=== PATIENT | female | born 1985 | race Caucasian/White ===

== ENCOUNTER 2016-12-28 08:27 | Outpatient (CLI) | payer BC ==
--- NOTE | 2016-12-28 09:15 | ULT ---
PELVIC SONOGRAM TRANSABDOMINAL AND TRANSVAGINAL IMAGING WITH DUPLEX EVALUATION: HISTORY: Amenorrhea. FINDINGS: Urinary bladder is unremarkable. The uterus has a homogeneous echotexture and is 13.2 cm in length. Within the endometrial cavity, a well-circumscribed collection of fluid is 1.2 cm in length. This correlates with an 8 weeks 3 day gestational sac size. No yolk sac or pole are apparent. No free fluid is seen within the pelvis. The right ovary is 2.2 cm in length and the left 2.7 cm. Each has a normal appearance and demonstrates good color and spectral Doppler flow. IMPRESSION: Cystic structure within the endometrial cavity. No yolk sac or pole are apparent. Blighted o vum is the favored diagnosis. POS: [facility]
== END 2016-12-28 08:28 | disposition home or self-care (01) ==
LOC: ULT 08:27
PROVIDERS: ATTEND Family Medicine
DX: N91.2 Amenorrhea, unspecified (principal)
CPT/HCPCS: 76856

== ENCOUNTER 2018-02-08 14:24 | Outpatient (CLI) | payer BC ==
--- NOTE | 2018-02-08 17:19 | ULT ---
OB ULTRASOUND: 02/08/18 HISTORY: Size, dates and anatomy. FINDINGS: Single viable intrauterine is noted. Gestational age by ultrasound is 19 weeks, 2 days. BPD: 19 week, 4 day HC: 19 week, 1 day Cerebellum: 19 week, 2 day AC: 19 week, 3 day FL: 18 week, 6 day heart rate 149 beats per minute. Placenta: Posterior and low lying. Presentation: Vertex. Amniotic fluid volume: Within normal range. ANATOMY: Intracranial contents show lateral ventricles upper normal size. Followup recommended. Intracranial c ontents otherwise unremarkable. Four chamber heart, stomach, kidneys, cord insertion, bladder, spine, facial features, extremities an d three vessel cord were all imaged. Cervical length: 4.9 cm. IMPRESSION: 1. 19 week, 2 day gestation by ultrasound measurement. 2. Lateral ventricles upper normal. Recommend followup OB ultrasound to re-evaluate. 3. Posterior low lying placenta. 4. Technologist described uterine contractions during the exam. POS: [facility]
== END 2018-02-08 14:25 | disposition home or self-care (01) ==
LOC: BICULT 14:24
PROVIDERS: ATTEND Family Medicine
DX: Z34.82 Encounter for supervision of other normal pregnancy, second trimester (principal)
CPT/HCPCS: 76805

== ENCOUNTER 2018-03-27 09:14 | Outpatient (CLI) | payer BC ==
--- NOTE | 2018-03-27 11:01 | ULT ---
OB ULTRASOUND: 03/27/2018 HISTORY: Low lying placenta. Follow-up evaluation. COMPARISON: 02/08/2018 FINDINGS: Again noted is a single intrauterine gestation, in cephalic presentation. Cardiac Doppler demonstrat es heart tones with a heart rate of 147 beats per minute. The placenta is located scalper operator iorly, without evidence of placenta previa. The placenta was noted to be low lying on the prior exam . There is a normal amount of amniotic fluid with an amniotic fluid index of 14.54 cm. Cervical length measures 6.9 cm. MEASUREMENTS: BIPARIETAL DIAMETER: 6.37 cm (25 weeks 6 days). HEAD CIRCUMFERENCE: 24.91 cm (27 weeks 1 day). ABDOMINAL CIRCUMFERENCE: 20.38 cm (25 weeks). FEMUR LENGTH: 4.67 cm (25 weeks 4 days). The estimated gestational age by ultrasound is 26 weeks with an PRESLEY of 07/03/2018. Gestational age b y last menstrual period is also 26 weeks. Estimated weight by ultrasound is 808 g (1 lb 13 oz). The anatomical structures were not evaluated on this exam, but no definite anomalies were seen on the provided images. IMPRESSION: 1. Single intrauterine gestation, in cephalic presentation, with heart tones documented. 2. Estimated gestational age by ultrasound is 26 weeks with estimated date of delivery of 07/03/2018 . 3. Estimated weight is 808 g (1 lb 13 oz). This represents the 18th percentile for weig ht. 4. The placenta is located posteriorly, and there are no findings to suggest placenta previa on this examination. The placenta also does not appear to be low lying, which was seen on the prior examina tion. POS: [facility]
== END 2018-03-27 09:15 | disposition home or self-care (01) ==
LOC: BICULT 09:14
PROVIDERS: ATTEND Family Medicine
DX: O44.42 Low lying placenta NOS or without hemorrhage, second trimester (principal); Z3A.26 26 weeks gestation of pregnancy
CPT/HCPCS: 76805

== ENCOUNTER 2018-05-01 07:35 | Outpatient (CLI) | payer BC ==
--- NOTE | 2018-05-01 09:14 | ULT ---
ULTRASOUND OBSTETRICAL LIMITED: DATE: 05-01-18 HISTORY: 33-year-old female in 3rd trimester of . Follow up ventriculomegaly. FINDINGS: number: Sargent lie: Cephalic Maternal cervix: Obscured Placenta: Posterior. No placenta previa. Amniotic fluid volume: BRENDAN 13 cm heart rate: 132 bpm anatomy was not evaluated in detail, except for the lateral ventricles, which do not appear dil ated on the current study. biometry: Head circumference (HC): 29.7 cm 32 w 6 d Biparietal diameter (BPD): 7.8 cm 31 w 2 d Abdominal circumference (AC): 27.4 cm 31 w 4 d Femur length (FL): 6.0 cm 31 w 3 d Average ultrasound age (AUA): 31 w 6 d Estimated date of delivery (PRESLEY): 06-27-2018 Last menstrual period (LMP): 09-26-2017 Gestational age by LMP: 31 w 0 d Estimated weight (EFW): 1788 g +/- 261 g (3 lbs. 15 oz +/- 9 oz) IMPRESSION: 1. Live 3rd trimester intrauterine gestation. 2. Estimated gestational age of 31 weeks, 6 days. 3. Cephalic lie. 4. No ventriculomegaly visualized. PJ Beaulieu POS: [facility]
== END 2018-05-01 07:36 | disposition home or self-care (01) ==
LOC: BICULT 07:35
PROVIDERS: ATTEND Family Medicine
DX: O35.0XX0 Maternal care for (suspected) central nervous system malformation in fetus, not applicable or unspecified (principal)
CPT/HCPCS: 76816

== ENCOUNTER 2018-06-27 11:56 | Inpatient (IN) | payer BC ==
[2018-06-27 12:38] VITALS: BMI 33.5
[2018-06-27] MEDS ORDERED: NS / Oxytocin 40 units/1000ml 1,000 ML ONE (12:55)
[2018-06-27] MEDS ORDERED: Fentanyl 4 mcg/Bup 0.1% Cadd 0 ML ONE (12:55)
[2018-06-27] MEDS ORDERED: Lidocaine 1% (PF) 30 ML VIAL ONE (12:56)
[2018-06-27] MEDS ORDERED: Lidocaine 1.5%/Epinephrine 1:200,000 5 ML AMPUL IJ ONE (12:56)
[2018-06-27] MEDS ORDERED: Ondansetron PF 4 MG/2 ML Vial IVP PRN ×2 (13:00→14:37)
[2018-06-27] MEDS ORDERED: Communication Order-Pharmacy FS SCH (13:00)
[2018-06-27] MEDS ORDERED: Naloxone HCl 0.4 mg/ml Vial IVP PRN ×2 (13:00→13:02)
[2018-06-27] MEDS ORDERED: ePHEDrine/0.9% NaCl/PF SYRINGE 50 mg/10 ml SLOW IVP PRN (13:00)
[2018-06-27] MEDS ORDERED: Acetaminophen 325 MG TAB PO PRN (13:02)
[2018-06-27] MEDS ORDERED: Eucerin (Mineral Oil/Petrolatum,White) 30 gm Jar TOP PRN (13:02)
[2018-06-27] MEDS ORDERED: Promethazine HCl 25 MG/ML VIAL IM PRN (13:02)
[2018-06-27] MEDS ORDERED: diphenhydrAMINE 50 MG/ML VIAL IVP PRN (13:02)
[2018-06-27] MEDS ORDERED: Lactated Ringer's 500 ML IV PRN (13:02)
[2018-06-27] MEDS ORDERED: Fentanyl 4 mcg/Bupivacaine 0.1% Cassette 100 ML EPIDURAL SCH (13:15)
[2018-06-27 13:34] LABS: Hemoglobin 11.3 g/dL (12.0-16.0); Mean Corpuscular HGB CONC 32.5 g/dL (32.0-36.0); Mean Corpuscular Hemoglobin 27.7 pg (27.0-31.0); Mean Corpuscular Volume 85.2 fL (78.0-98.0); Mean Platelet Volume 11.3 fL (7.4-10.4); Platelet Count 181 thou/uL (130-400); RBC Distribution Width 15.2 % (11.5-14.5); Red Blood Cell (RBC) Count 4.09 mill/uL (4.20-5.40); White Blood Cell (WBC) Count 12.7 thou/uL (4.8-10.8)
[2018-06-27] MEDS ORDERED: Butorphanol Tartrate 1 MG/ML VIAL SLOW IVP PRN (13:35)
[2018-06-27 14:14] LABS: Syphilis Antibody Nonreactive (Nonreactive); Syphilis Antibody Index 0.03 S/CO (<1.00 Non-Reactive)
[2018-06-27 14:16] LABS: Hep B Surf Ag Non-Reactive S/CO (NonReactive)
[2018-06-27] MEDS ORDERED: NS / Oxytocin 40 units/1000ml 1,000 ML IV SCH (14:37)
[2018-06-27] MEDS ORDERED: Preparation H Ointment 28 GM TUBE PR PRN (14:37)
[2018-06-27] MEDS ORDERED: HYDROcodone/Acetaminophen 5/325 mg Tablet PO PRN (14:37)
[2018-06-27] MEDS ORDERED: Bisacodyl 10 MG SUPP PR PRN (14:37)
[2018-06-27] MEDS ORDERED: Lanolin Ointment 7 GM TUBE TOP PRN (14:37)
[2018-06-27] MEDS ORDERED: Acetaminophen/Codeine 30-300mg Tablet PO PRN (14:37)
[2018-06-27] MEDS ORDERED: diphenhydrAMINE 25 MG CAP PO PRN (14:37)
[2018-06-27] MEDS ORDERED: Milk Of Magnesia 30 ML UDCUP PO PRN (14:37)
[2018-06-27] MEDS ORDERED: Benzocaine-Menthol 82.5 ML CAN TOP PRN (14:37)
[2018-06-27] MEDS: Ibuprofen 800 MG TAB PO SCH (17:03)
[2018-06-27] MEDS: Ferrous Sulfate 325 MG TAB PO SCH (18:01)
[2018-06-27] MEDS: Docusate Calcium (SURFAK) 240 MG CAP PO SCH (21:13)
[2018-06-28] MEDS: Ibuprofen 800 MG TAB PO SCH ×4 (00:08→21:59)
[2018-06-28] MEDS: Ferrous Sulfate 325 MG TAB PO SCH ×2 (08:45→17:11)
[2018-06-28] MEDS: Prenatal Vitamin 1 TAB PO SCH (08:45)
[2018-06-28] MEDS: Docusate Calcium (SURFAK) 240 MG CAP PO SCH ×2 (08:45→21:59)
[2018-06-29] MEDS: Ibuprofen 800 MG TAB PO SCH (06:06)
[2018-06-29 08:36] VITALS: BP 136/74; TEMP 97.8
[2018-06-29] MEDS: Prenatal Vitamin 1 TAB PO SCH (09:18)
[2018-06-29] MEDS: Docusate Calcium (SURFAK) 240 MG CAP PO SCH (09:18)
[2018-06-29] MEDS: Ferrous Sulfate 325 MG TAB PO SCH (09:21)
== END 2018-06-29 12:35 | disposition home or self-care (01) | DRG 807 ==
LOC: L&D 11:56 → 3SW 17:02
PROVIDERS: ADMIT Family Medicine; ATTEND Family Medicine
PROC: 10E0XZZ Delivery of Products of Conception, External Approach (ICD-10-PCS; principal; 2018-06-27)
PROC: 0HQ9XZZ Repair Perineum Skin, External Approach (ICD-10-PCS; 2018-06-27)
DX: O13.4 Gestational [pregnancy-induced] hypertension without significant proteinuria, complicating childbirth (principal); Z37.0 Single live birth; O62.3 Precipitate labor; Z3A.38 38 weeks gestation of pregnancy; O70.0 First degree perineal laceration during delivery; O69.81X0 Labor and delivery complicated by cord around neck, without compression, not applicable or unspecified; O99.824 Streptococcus B carrier state complicating childbirth; O99.344 Other mental disorders complicating childbirth; F41.1 Generalized anxiety disorder; Z79.899 Other long term (current) drug therapy
CPT/HCPCS: 36415; 85027; 86780; 86850; 86900; 86901; 87340; J2001; J3490